=== PATIENT | female | born 1995 | race Two or more races ===

== ENCOUNTER 2016-05-27 14:07 | Emergency (ER) | payer MEDICAID ==
[~2016-05-27] VITALS: Ht 152.4 cm; Wt 68.0 kg
[2016-05-27 14:33] VITALS: BP 113/68
[2016-05-27] MEDS ORDERED: IBUPROFEN600 MG ORAL (15:09)
[2016-05-27 15:20] VITALS: BP 113/68
[2016-05-27 15:24] LABS: APPEARANCE,URINE CLOUDY; KETONES,URINE NEGATIVE (NEGATIVE); LEUKOCYTE ESTERASE ,URINE 1+ (NEGATIVE); NITRITE,URINE NEGATIVE (NEGATIVE); PH,URINE 7 (4.5-8.0); PROTEIN,URINE NEGATIVE (NEGATIVE); UROBILINOGEN,URINE NORMAL MG/DL (0.0-1.0)
[2016-05-27 15:33] LABS: RBC,URINE 0-2 /HPF (0 - 2)
[2016-05-27 15:34] LABS: AMORPHOUS SEDIMENT,UR MANY /LPF; BACTERIA,URINE MANY /HPF; SQUAMOUS EPITHELIAL CELL,UR MANY /LPF (NONE/OCC); WBC,URINE 0 /HPF (0 - 2)
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
== END 2016-05-27 15:20 | disposition home or self-care (01) ==
LOC: EMR 15:00
DX: O26.891 Other specified pregnancy related conditions, first trimester (principal); M54.5 Low back pain
CPT/HCPCS: 81003; 81025; 87086; 99283